=== PATIENT | female | born 1990 | race African-American/Black ===

== ENCOUNTER 2021-04-04 14:13 | Emergency (ER) | payer OTHER, SELFPAY ==
[2021-04-04] VITALS (7 sets, daily range): BP systolic 123–142; BP diastolic 62–100; PULSE 72–84; RESP 18–20; TEMP 36.8–37; O2SAT 96–100; BMI 37.5
[2021-04-04 14:42] LABS: Microscopic, Urine URINE MICROSCOPIC (MICROSCOPIC)
[2021-04-04 14:44] LABS: Appearance,Urine SL CLOUDY (Clear); Bilirubin,Urine Negative (Negative); Blood, Urine TRACE-I (Negative); Color,Urine YELLOW (Yellow); Glucose,Urine (UA) Negative (Negative); Ketones,Urine TRACE (Negative); Leukocyte Esterase,Urine 3+ (Negative); Nitrate,Urine Negative (Negative); PH,Urine 7.5 (5.0-8.5); Protein,Urine TRACE (Negative); Urobilinogen,Urine 0.2 EU/dl (0.2)
[2021-04-04 14:46] LABS: Urine Pregnancy, HCG Qual. Positive (Negative)
[2021-04-04 14:55] LABS: Amorphous Sediment,Urine 1+ /lpf; Bacteria,Urine 1+ /lpf; RBC,Urine Occasional #/hpf (0-3); Squamous Epithelial Cell,Urine 20-50 #/hpf (0-5)
--- NOTE | 2021-04-04 15:07 | US_ITS ---
PROCEDURE INFORMATION: Exam: US , Transvaginal Exam date and time: 04/04/2021 3:07 PM Age: 30 years old Clinical indication: complicated by abdominal or pelvic pain; Lower; Second trimester; Gestational age or lmp: Unknown; ; Patient HX: Acute pelvic and rectal pain--pos preg; Additional info: Pelvic and rectal pressure TECHNIQUE: Imaging protocol: Real-time transvaginal obstetrical ultrasound of the maternal pelvis with image documentation. Transvaginal imaging was used for better evaluation of the fetus, adnexa, and/or cervix. COMPARISON: No relevant prior studies available. FINDINGS: Gestation: No intrauterine pole or yolk sac. Right adnexal region ectopic . heart rate: 146 bpm. BIOMETRY: Gestational age (AUA): Gestational age by ultrasound measurements 13 weeks and 4 days. MATERNAL: Left adnexa: Minor free fluid adjacent to the left ovary. Left ovary is unremarkable. Right adnexa: 2.0 cm ovarian cyst cephalad to the ectopic . IMPRESSION: Viable right adnexal region ectopic with heart rate of 146 bpm. EGA 13 weeks 4 days.
--- NOTE | 2021-04-04 15:08 | PC.NURSE ---
notified rad of ultrasound order, spoke with darryl.
--- NOTE | 2021-04-04 15:23 | HMH.EDGENADL ---
ED Disposition Clinical Impression: Ectopic Qualifiers: Location of ectopic : abdominal Intrauterine status: without intrauterine Qualified Code(s): O00.00 - Abdominal without intrauterine Disposition: Xfer Short-Term Hosp Condition on Discharge: Good Referrals: Provider,Referral, [Primary Care Provider] - - Critical Care Critical Care Time: No Attestation: On 04/04/21, the high probability of a clinically significant, sudden or life threatening deterioration of the following system(s) required my full and direct attention, intervention and personal management. The time I documented below is in addition to time spent performing reported procedures but includes the following listed in this critical care notation. Medical Decision Making - Franco Inquiry Pt receiving controlled substance: No Vital Signs: 04/04/21 14:17 04/04/21 16:29 04/04/21 17:05 Temperature 98.6 F Temperature Source Oral Pulse Rate 83 84 Pulse Rate [Right Radial] 77 Respiratory Rate 18 18 20 Blood Pressure 135/87 142/100 H Blood Pressure [Right Arm] 123/83 Blood Pressure Mean [Right Arm] 96 Blood Pressure Source Automatic Cuff Blood Pressure Source [Right Arm] Automatic Cuff Blood Pressure Position Sitting Blood Pressure Position [Right Arm] Sitting 02 Sat by Pulse Oximetry 100 96 100 Oxygen Delivery Method Room Air Room Air - Lab Data Lab Results 04/04/21 14:24: Urine Color Yellow, Urine Appearance Sl cloudy, Urine pH 7.5, Ur Specific [place] 1.020, Urine Protein Trace, Urine Glucose (UA) Negative, Urine Ketones Trace, Urine Blood Trace-i, Urine Nitrate Negative, Urine Bilirubin Negative, Urine Urobilinogen 0.2, Ur Leukocyte Esterase 3+ A, Urine RBC Occasional, Urine WBC 10-20, Ur Squamous Epith Cells 20-50, Amorphous Sediment 1+, Urine Bacteria 1+ 04/04/21 14:24: Urine HCG, Qual Positive 04/04/21 15:30: WBC 8.2, RBC 4.42, Hgb 12.3, Hct 38.4, MCV 86.7, MCH 27.8, MCHC 32.0, RDW 13.8, Plt Count 296, MPV 7.1 L, Neut % (Auto) 66.1, Lymph % (Auto) 28.4, [place] % (Auto) 4.0, Eos % (Auto) 1.1, Baso % (Auto) 0.4, Neut # (Auto) 5.4, Lymph # (Auto) 2.3, [place] # (Auto) 0.3, Eos # (Auto) 0.1, Baso # (Auto) 0.0 04/04/21 15:30: Sodium 134 L, Potassium 3.7, Chloride 105, Carbon Dioxide 22, Anion Gap 10.7, BUN 6 L, Creatinine 0.60, Estimated Creat Clear 240, Estimated GFR 119, Est GFR ( Amer) 144, Glucose 81, Calcium 9.3, Total Bilirubin 0.3, AST 26, ALT 25, Alkaline Phosphatase 70, Total Protein 7.7, Albumin 4.2, Globulin 3.5 H, Albumin/Globulin Ratio 1.2, HCG, Quant [id number] H Result diagrams: 04/04/21 15:30 04/04/21 15:30 Orders (Tests/Meds): ORDERS Category Date Time Status Consult to Physician [CONS] Routine Cons 04/04/21 17:20 Ordered Full Resp Panel w/COVID ([facility]) Routine Lab 04/04/21 17:57 Received Urine Culture Stat Micro 04/04/21 14:24 Received - US Data US Images: Pelvis Findings Narrative: 4:00 PM: As per [facility] procedure, ultrasound report received from civil laboratory technician: 14-week size fetus in the right adnexa, unruptured ectopic. Uterus is empty. - Physician Consults Physician Consulted: Rigoberto Time: 16:07 Reason -: Obstetrical Eval/Care Comment/Response: She will speak with lawn technician. 17:00 Dr. Franklin present. Medical Decision Narrative: 6:45 PM: Dr. Franklin has arranged transfer to [facility] for treatment. She feels the is most likely abdominal rather than tubal. General Adult HPI - General Chief complaint: PAIN Stated complaint: 12 wks pain in rectum Time Seen by Provider: 04/04/21 15:15 Mode of Arrival: Ambulatory Limitations: No Limitations Description of Symptoms (Recalled from ER Triage Doc. by RN): Pt reports pelvic and rectal pressure. Pt states pelvic pain radiates around to her lower back bilaterally. Pt reports she is approx 12 weeks . Pt reports she began having pelvic
[2021-04-04 15:38] LABS: Basophils % 0.4 % (0.1-2.0); Eosinophils # 0.1 K/mm3 (0.0-0.4); Eosinophils % 1.1 % (0.1-12.0); Hematocrit 38.4 % (37.0-47.0); Hemoglobin 12.3 g/dL (12.2-16.2); Lymphocytes # 2.3 K/mm3 (0.7-4.5); Lymphocytes % 28.4 % (10-50); Mean Corpuscular Hemoglobin 27.8 pg (27.0-31.2); Mean Corpuscular Volume 86.7 fl (81-99); Mean Platelet Volume 7.1 fl (7.4-10.4); Monocytes # 0.3 K/mm3 (0.1-1.0); Neutrophils # 5.4 K/mm3 (1.8-7.8); Neutrophils % 66.1 % (37.0-80.0); Platelet Count 296 K/mm3 (142-424); Red Blood Count 4.42 M/mm3 (4.20-5.40); Red Cell Distribution Width 13.8 % (11.5-17.5); White Blood Count 8.2 K/mm3 (4.8-10.8)
[2021-04-04 15:45] LABS: Chloride 105 mmol/L (98-107); Sodium 134 mmol/L (136-145)
--- NOTE | 2021-04-04 15:45 | PC.NURSE ---
pt to ultrasound
[2021-04-04 15:46] LABS: Potassium 3.7 mmoL/L (3.5-5.1)
[2021-04-04 15:48] LABS: Alanine Aminotransferase 25 U/L (12-78); Albumin Level 4.2 g/dl (3.5-5.0); Albumin/Globulin Ratio 1.2 (1.1-1.8); Alkaline Phosphatase 70 U/L (38-126); Anion Gap 10.7 mEq/L (5-15); Aspartate Amino Transferase 26 U/L (14-36); Bilirubin,Total 0.3 mg/dl (0.2-1.3); Blood Urea Nitrogen 6 mg/dl (7-17); Carbon Dioxide 22 mmol/L (22.0-30.0); Creatinine Clearance Estimated 240 mL/min (50-200); Estimated Glomerular Filt Rate 119 ml/min (>60); GFR (African American) 144 ML/MIN (>60); Globulin 3.5 g/dL (1.3-3.2); Total Protein,Serum 7.7 g/dl (6.3-8.2)
[2021-04-04 15:49] LABS: Calcium 9.3 mg/dl (8.4-10.2); Glucose 81 mg/dl (74-100)
--- NOTE | 2021-04-04 16:02 | PC.NURSE ---
SUKHWINDER YUSUF speaking with ultrasound staff at this time
--- NOTE | 2021-04-04 16:04 | PC.NURSE ---
ER speaking with OB manufacturing storeperson
--- NOTE | 2021-04-04 16:24 | PC.NURSE ---
pt return from ultra sound ultrasound staff speaking with ER , states to SUKHWINDER YUSUF that DR. SETH (preparation center coordinator OB) states she is coming in to see pt.
--- NOTE | 2021-04-04 17:12 | PC.NURSE ---
Dr Franklin (LEARNING AND DEVELOPMENT MANAGER) spoke with ERICKSON concerning pt
--- NOTE | 2021-04-04 17:22 | PC.NURSE ---
DR. Franklin at [facility]
--- NOTE | 2021-04-04 17:51 | PC.NURSE ---
Dr Franklin speaking with [employer]
--- NOTE | 2021-04-04 17:53 | HMH.GYNCON ---
WIND COMMISSIONING TECHNICIAN - CN: HPI - Data of Consult Patient: new to practice Consult date: 04/04/21 Requesting Physician: Ferny Yusuf MD Primary Care Provider: Referral Provider, MD - Consult Narrative Reason for consult: pelvic pain, ectopic History of present illness: Ms. Orozco is a 30 year old G1 who presented to [facility] ED on 04/04/21 with a complaint of bilateral pelvic pain, worse in RLQ. Patient reports history of irregular periods and cannot give a date of LMP but reports that she had light bleeding/spotting for 6 weeks that ended 1 week ago. She was seen in [facility] ED approximately 2 weeks ago with complaint of acute onset of pain during intercourse. Lab work during ED evaluation revealed +HCG, urinary tract infection and bacterial vaginosis. No imaging was done during evaluation. She was discharged home with antibiotics for UTI and BV and told to follow up with an OB regarding . She had scheduled a appointment with an OB physician in [place] for next week, but cannot recall the name of the physician or practice. Pain improved after discharge from [facility] but resumed 4 days ago, again after intercourse. Pain is described as constant and dull with acute sharp exacerbations, most notable with ambulation. Most prominent in RLQ but radiating across pelvis to LLQ. Pain is relieved with sitting position. No vaginal bleeding over the past week. No fever/chills, nausea/vomiting, constipation or diarrhea. No dysuria, urgency or frequency; UA today somewhat unclear due to contamination but treated for UTI 2 weeks ago. OB Hx: G1 current WIND COMMISSIONING TECHNICIAN Hx: none PMH: none PSH: none MEDS: none ALLERGIES: none SH: + tobacco < 1 PPD; denies illicit drug or ETOH use Evaluation in ED today: VSSAF, benign exam with mild tenderness on abd palpation in RLQ. No rebound/guarding Hgb 12.9, HCG 49,771 UA: 3+ LE, Nit neg, WBC 10-20, Blood Trace, Squamous Epi 20-50 Ultrasound: Uterus 12 x 5.7 x 5.7cm, no GS/YS/FP within uterus Ovarian measurements not given but L ovary described as unremarkable and R ovary with 2cm ovarian cyst Ectopic is visualized in R adnexal region, but does not appear to be located in fallopian tube Fetus measures 7.5cm (CRL) and is actively moving, with a heart rate of 146 bpm No free fluid in pelvis PEWTER CASTER consult was called to ED for further evaluation Upon discussion with risk analyst and radiologist, the decision was made to transfer this patient to for surgical management Further imaging may be helpful in delineating placental attachment, but the concern regarding unclear maternal organ location for placental attachment indicated that tertiary care facility would be in this patient's best interest, as surgical sub-specialty involvement may be necessary. This case was discussed with Dr. Young at , wigs salesperson for [employer] TECH[employer]IAN, and transfer was accepted as ED-to-ED. Patient has been counseled about the current findings and need for surgical management. CC: Review of Systems - Review of Systems Review of systems:: pertinent systems reviewed and negative unless documented below - Constitutional Denies chills, Denies fever(s) - *Gastrointestinal Denies constipation, Denies nausea, Denies vomiting - *Genitourinary Reports abnormal vaginal bleeding, Reports painful intercourse, Reports pelvic pain [facility] History I have reviewed the patient's past medical history: Yes Medical History: Reports:: Anxiety, Depression Denies:: Diabetes Mellitus Type 2, Hypertension *Have you ever received a pneumonia vaccine?: No *Have you received a flu vaccine this season?: No Other Surgeries: Yes: No Previous Surgery - *Social History Smoking Status: Current every day smoker Tobacco Type: cigarettes Alcohol Intake: current Alcohol Intake Frequency:: a few times a week *Occupational Status:: employed *Travel in the last 8 weeks: None - Psychiatric History Pschychiatric History:: Reports:: Anxiety,
[2021-04-04 18:02] LABS: Adenovirus,PCR Not Detected (NotDetected); Bordetella Pertussis Not Detected (NotDetected); Chlamydophila Pneumoniae, PCR Not Detected (NotDetected); Coronavirus 19, PCR Not Detected (NotDetected); Coronavirus 229E Not Detected (NotDetected); Coronavirus NL63 Not Detected (NotDetected); Coronavirus OC43 Not Detected (NotDetected); Coronovirus HKU1,PCR Not Detected (NotDetected); Human Metapneumovirus Not Detected (NotDetected); Influenza A, PCR Not Detected (NotDetected); Influenza AH1, 2009 Not Detected (NotDetected); Influenza AH1, PCR Not Detected (NotDetected); Influenza AH3,PCR Not Detected (NotDetected); Influenza B, PCR Not Detected (NotDetected); Mycoplasma Pneumoniae, PCR Not Detected (NotDetected); Parainfluenza 1, PCR Not Detected (NotDetected); Parainfluenza 2, PCR Not Detected (NotDetected); Parainfluenza 3, PCR Not Detected (NotDetected); Parainfluenza 4, PCR Not Detected (NotDetected); Respiratory Syncytial Virus Not Detected (NotDetected); Rhinovirus/Enterovirus Not Detected (NotDetected)
--- NOTE | 2021-04-04 18:03 | PC.NURSE ---
Dr. Franklin speaking with dictating transcribing machine servicer at at this time
--- NOTE | 2021-04-04 18:19 | PC.NURSE ---
Dr Franklin spoke with Dr Young to be accepted at [facility] ED
--- NOTE | 2021-04-04 18:40 | PC.NURSE ---
Dr. Franklin notifying pt of transfer to [facility]
--- NOTE | 2021-04-04 18:44 | PC.NURSE ---
report called Jessie Tucker RN at [facility] at this time.
--- NOTE | 2021-04-04 19:01 | PC.NURSE ---
[facility]
== END 2021-04-04 19:05 | disposition short-term general hospital (02) ==
PROVIDERS: Emergency Provider Emergency Medicine
DX: O00.00 Abdominal pregnancy without intrauterine pregnancy (principal); Z3A.14 14 weeks gestation of pregnancy; F41.8 Other specified anxiety disorders; F17.210 Nicotine dependence, cigarettes, uncomplicated
CPT/HCPCS: 76817; 80053; 81001; 81025; 84702; 85025; 87086; 87581; 87633; 87798; 99284